=== PATIENT | female | born 1965 | race Caucasian/White ===

== ENCOUNTER 2024-08-20 10:40 | Emergency (ER) | payer OTHER, SELFPAY ==
[2024-08-20 10:53] VITALS: BP 142/90; PULSE 91; RESP 18; TEMP 36.7; O2SAT 100; BMI 20.6
--- NOTE | 2024-08-20 11:04 | XR_ITS ---
Examination: Foot, left, 3 views Technique: AP, oblique, lateral views foot, 3 views Date and time of exam: August 20, 2024, 1113 hrs. Indications: Patient fell this morning with injury to the foot, foot pain Findings: Significant osteopenia Possible tiny chip fracture 4 mm off the lateral anterior calcaneus on the AP view No dislocation Impression: Suspicious for tiny chip fracture off the anterior lateral calcaneus
--- NOTE | 2024-08-20 11:04 | XR_ITS ---
EXAMINATION: Ankle, left 3 views . Technique: Ankle AP, oblique, lateral 3 views Date and time of exam: August 20, 2024 1115 hrs. Indications: Patient fell this morning with injury to the ankle, ankle pain Findings: No acute ankle fracture No dislocation Impression: No acute ankle fracture
--- NOTE | 2024-08-20 11:05 | PD.EDANKLE ---
Lower Extremity Injury RME/HPI General Chief Complaint: Ankle/Foot Injury Stated Complaint: LEFT ANKLE INJURY FALLING DOWN STAIRS Time Seen by Provider: 08/20/24 10:49 Arrival date/time: 08/20/24 10:40 This is a 58-year-old female that comes in with complaints of left ankle injury after falling down the stairs. Patient states she landed on her left hip but not complaining of pain to her left hip or her left leg. Patient does have pain to her left ankle and left foot. Patient has some moderate swelling. Patient denies loss of consciousness patient has an injury to fifth digit. On the right hand but states it only mildly hurts. Patient does not want an x-ray. Patient denies past medical history of Related Data Previous Rx's ?Medication ?Instructions ?Recorded ibuprofen 800 mg tablet 800 mg PO Q6H PRN pain #14 tabs 08/20/24 Allergies Allergy/AdvReac Type Severity Reaction Status Date / Time No Known Allergies Allergy Unverified 10/25/18 16:25 Course Orders Category Date Time Status XR ankle comp LT min 3V Stat Exams 08/20/24 11:04 Completed XR foot comp LT min 3V Stat Exams 08/20/24 11:04 Completed Vital Signs Vital signs: Vital Signs Temperature 98.1 F 08/20/24 10:53 Pulse Rate 91 08/20/24 10:53 Respiratory Rate 18 08/20/24 10:53 Blood Pressure 142/90 H 08/20/24 10:53 Pulse Oximetry (%) 100 08/20/24 10:53 Oxygen Delivery Method Room Air 08/20/24 10:53 Extremity Injury, Lower MDM Narrative MDM Narrative:: ankle x ray: Findings: No acute ankle fracture No dislocation Impression: No acute ankle fracture foot x ray: Findings: Significant osteopenia Possible tiny chip fracture 4 mm off the lateral anterior calcaneus on the AP view No dislocation Impression: Suspicious for tiny chip fracture off the anterior lateral calcaneus Today patient had xrays. There was no acute fracture seen. On exam patient has mild swelling. I explained to patient at length that if there was continued pain to this area or worsened to come back to ED or see primary provider for more xrays or further testing such as CT scan or MRI. X rays are not perfect and sometimes serial films needed. Patient verbalized understanding. Patient states they will follow up with primary provider in 1-2 days or come back to ED if symptoms change or worsen. Discharge Plan Plan Patient Disposition: HOME (Self Care) Patient condition on transfer: Stable Prescriptions/Referrals Prescriptions/Med Rec: New ibuprofen 800 mg tablet 800 mg PO Q6H PRN (Reason: pain) Qty: 14 0RF Referrals: No Primary/Family,Physician [Primary Care Provider] - In 1 week Problem List Clinical Impression: Contusion of foot, Acute ankle pain Patient/Caregiver Discharge Instructions Discharge Activity: activity as tolerated Education Materials: Bone Contusion, ED RICE Additional Instructions: ankle x ray: Findings: No acute ankle fracture No dislocation Impression: No acute ankle fracture foot x ray: Findings: Significant osteopenia Possible tiny chip fracture 4 mm off the lateral anterior calcaneus on the AP view No dislocation Impression: Suspicious for tiny chip fracture off the anterior lateral calcaneus Please keep leg elevated ice at home. May take ibuprofen and Tylenol for pain. If continued's pain and swelling patient may need a repeat x-ray. Follow up with primary provider in 1-2 days. Come back to ED if symptoms change or worsen Print Language: Guatemalan Stand Alone Forms: Kandy Award Info., Work/School Release, Patient Portal Info Letter PA/MAURA Supervising Physician KATARZYNA/MAURA Supervising Physician: dot
== END 2024-08-20 14:09 | disposition home or self-care (01) ==
PROVIDERS: Emergency Provider Emergency Medicine
DX: S90.32XA Contusion of left foot, initial encounter (principal); W10.9XXA Fall (on) (from) unspecified stairs and steps, initial encounter; M25.572 Pain in left ankle and joints of left foot
CPT/HCPCS: 29515; 73610; 73630; 99283

== ENCOUNTER 2024-09-01 15:21 | Emergency (ER) | payer OTHER, SELFPAY ==
[2024-09-01 15:22] VITALS: BMI 21.3
[2024-09-01 15:48] VITALS: BP 158/92; PULSE 98; RESP 18; TEMP 37.1; O2SAT 96
--- NOTE | 2024-09-01 16:00 | EDNOTE_ITS ---
<Statement entered by Sanjuanita Giron MD - 09/02/24 06:23> As co-signing physician, I was present and available for consult prn. I concur with the plan and care as documented by the midlevel provider. Lower Extremity Injury RME/HPI General Chief Complaint: Ankle/Foot Injury Stated Complaint: LEFT ANKLE INJURY OM 08/20 AND NOW ANKLE RED Time Seen by Provider: 09/01/24 15:53 Source: patient Arrival date/time: 09/01/24 15:21 58-year-old female with no known medical history presents to the emergency room with a chief complaint of tenderness and pain to her left ankle. Patient states she was seen here on 08/20/2024. Mode of arrival: ambulatory Limitations: no limitations Related Data Previous Rx's ?Medication ?Instructions ?Recorded ibuprofen 800 mg tablet 800 mg PO Q6H PRN pain #14 t abs 08/20/24 cephalexin 500 mg capsule 500 mg PO BID 7 days #14 cap s 09/01/24 ibuprofen 800 mg tablet 800 mg PO Q8H #30 tabs 09/01 Allergies Allergy/AdvReac Type Severity Reaction Status Date / Time No Known Allergies Allergy Unverified 09/01/24 15:23 Review of Systems Review of Systems Systems Reviewed: All systems reviewed, normal except as documented Constitutional Constitutional: Reports system reviewed and no additional complaints, except as documented, Denies fatigue, Denies fever(s), Denies headache(s) and Denies weakness Eyes Eyes: Reports system reviewed and no additional complaints, except as documented, Denies blurry vision and Denies change in vision ENT Ears, Nose, Mouth, and Throat: Reports system reviewed and no additional complaints, except as documented, Denies otalgia, Denies headache(s), Denies nasal congestion, Denies throat swelling and Denies vertigo Cardiovascular Cardiovascular: Reports system reviewed and no additional complaints, except as documented, Denies chest pain, Denies dyspnea and Denies dyspnea on exertion Respiratory Respiratory: Reports system reviewed and no additional complaints, except as documented, Denies chest congestion, Denies cough, Denies dyspnea, Denies dyspnea on exertion and Denies wheezing Gastrointestinal Gastrointestinal: Reports system reviewed and no additional complaints, except as documented, Denies abdominal pain, Denies cramping, Denies nausea and Denies vomiting Genitourinary Genitourinary: Reports system reviewed and no additional complaints, except as documented Musculoskeletal Musculoskeletal: Reports system reviewed and no additional complaints, except as documented, Reports abnormal gait, Reports arthralgias, Denies back pain and Reports limited range of motion Integumentary/Breasts Skin/Breast: Reports system reviewed and no additional complaints, except as documented and Denies wounds Neurologic Neurologic: Reports system reviewed and no additional complaints, except as documented, Reports abnormal gait, Denies confusion, Denies headache(s), Denies lack of coordination, Denies vertigo and Denies weakness Psychiatric Psychiatric: Reports system reviewed and no additional complaints, except as documented, Denies anxiety, Denies confusion, Denies depression, Denies paranoia, Denies suicidal ideation and Denies tactile hallucinations Endocrine Endocrine: Reports system reviewed and no additional complaints, except as documented and Denies fatigue Hematologic/Lymphatic Hematologic/Lymphatic: Reports system reviewed and no additional complaints, except as documented and Denies lymphadenopathy Allergic/Immunologic Allergic/Immunologic: Reports system reviewed and no additional complaints, except as documented, Denies throat swelling, Denies urticaria and Denies wheezing Past Medical History Past Medical History CARDIAC: Negative Congestive Heart Failure RESPIRATORY: Positive Chronic Obstructive Pulmonary Disease (COPD) and Asthma GENITOURINARY: Negative Renal Disease ENDOCRINE: Negative Diabetes Mellitus Type 1 or Diabetes Mellitus Type 2 Social History SMOKING STATUS: Never smoker ED Exam General Limitations: Present no limitations General appearance: Present alert and in no apparent distress Head Head exam: Present atraumatic Eye Eye exam: Present normal appearance, PERRL and EOMI ENT ENT exam: Present normal exam, normal oropharynx and mucous membranes moist Neck Neck exam: Present normal inspection, full ROM and trachea midline Chest Chest inspection: Present normal inspection and symmetric chest wall rise Respiratory Respiratory exam: Present normal lung sounds bilaterally Cardiovascular Cardiovascular exam: Present regular rate, normal rhythm and normal heart sounds Abdominal Exam Abdominal exam: Present soft and normal bowel sounds Extremities Exam Extremities exam: Present normal inspection and full ROM Expanded Lower Extremity Exam Hip/Pelvis exam: Present normal inspection Upper leg exam: Present normal inspection Knee exam: Present normal inspection Lower leg exam: Present normal inspection Ankle exam: Present tenderness, swelling and tenderness over talofibular lig; Absent full ROM Foot/toe exam: Present normal inspection Neurovascular/Tendon exam: Present normal capillary refill Gait: observed and limited by pain Back Exam Back exam: Present normal inspection and full ROM Neurological Exam Neurological exam: Present alert, oriented X3 and CN II-XII intact Psychiatric Psychiatric exam: Present normal affect and normal mood Skin Skin exam: Present warm, dry, intact and normal color Course Quality Measures none Vital Signs Vital signs: Vital Signs Temperature 98.7 F 09/01/24 15:48 Pulse Rate 98 09/01/24 15:48 Respiratory Rate 18 09/01/24 15:48 Blood Pressure 158/92 H 09/01/24 15:48 Pulse Oximetry (%) 96 09/01/24 15:48 Oxygen Delivery Method Room Air 09/01/24 15:48 Extremity Injury, Lower MDM Narrative MDM Narrative:: 58-year-old female with no known medical history presents to the emergency room with a chief complaint of tenderness and pain to her left ankle. Patient states she was seen here on 08/20/2024. Patient is hemodynamically stable and in no apparent distress Patient was seen here on the and x-rays were completed one of the x-rays showed there could be a small chip fracture to the foot. Ankle was negative for acute fracture or dislocation I evaluated the patient's foot there is still swelling there is bruising and there is warmth. Patient has an appointment with it technical specialist coming up Patient was discharged and educated to follow-up with primary care provider in the next 24 to 48 hours and return to the emergency room for any evidence of worsening signs or symptoms Patient data External records reviewed:: [facility] previous records Clinical information provided by:: patient Social determinants that could affect healthcare access:: none Patient has the following chronic illnesses:: No chronic illness How is presenting disease/condition affected by chronic disease/condition?: no chronic disease Evaluation data The following diagnostics were reviewed and interpreted by me:: lab results and radiology exam(s) Lab and/or radiology exams considered but not ordered:: Labs and radiology exams considered in order Interpretation Summary: N/A Medications / Prescriptions Medications or Prescriptions considered but not ordered:: No medication given Medication administrations:: No medication given Consultations Consultation(s) initiated? (list below): No Diagnosis Extremity Injury, Lower Differential Diagnosis: ankle sprain and strain, ankle fracture and other (Foot fracture) Most likely diagnosis given after review of the tests above:: Foot fracture Admission Indicated Admission indicated?: not indicated Admission Request Was there a request for admission?: No Disposition Plan Disposition Plan: Discharge Discharge Attestation Discharge Attestation: The patient and all family members were given an opportunity to ask questions and understood the discharge instructions. Discharge instructions specifically effects, indications for sooner follow up or return to the emergency department, and the expected course of current diagnosis. Patient condition: Stable Discharge Plan Plan Patient Disposition: HOME (Self Care) Discharge Disposition comment: Stable Prescriptions/Referrals Prescriptions/Med Rec: New cephalexin 500 mg capsule 500 mg PO BID 7 Days Qty: 14 0RF ibuprofen 800 mg tablet 800 mg PO Q8H Qty: 30 0RF No Action ibuprofen 800 mg tablet 800 mg PO Q6H PRN (Reason: pain) Qty: 14 0RF Problem List Clinical Impression: Foot fracture Patient/Caregiver Discharge Instructions Education Materials: ED Fracture, Foot, ED Fracture, Lower Extremity Additional Instructions: Please follow-up with your primary care provider in the next 24 to 48 hours Follow-up with your it technical specialist for further management of this chip fracture Antibiotics are sent to your pharmacy to prevent any infection to the area. For any evidence of worsening signs or symptoms return to the emergency room immediately Print Language: Luxembourger Stand Alone Forms: Kandy Award Info., Patient Portal Info Letter KATARZYNA/MAURA Supervising Physician KATARZYNA/MAURA Supervising Physician: Dr. GIRON
== END 2024-09-01 16:59 | disposition home or self-care (01) ==
LOC: SERX 16:08
PROVIDERS: Emergency Provider Emergency Medicine
DX: M25.572 Pain in left ankle and joints of left foot (principal); S92.902A Unspecified fracture of left foot, initial encounter for closed fracture; X58.XXXA Exposure to other specified factors, initial encounter
CPT/HCPCS: 99281

== ENCOUNTER → 2024-09-12 | Outpatient (CLI) | payer OTHER, SELFPAY ==
--- NOTE | 2024-09-12 10:54 | XR_ITS ---
EXAMINATION: Ankle, left . Technique: Ankle AP, oblique, lateral 3 views Date and time of exam: September 12, 2024 1128 hours INDICATIONS: Patient fell one month ago with injury to the ankle, ankle pain. FINDINGS: Severe osteopenia. Tiny chip fractures off the anterior lateral calcaneus IMPRESSION: Tiny chip fractures off the anterior lateral calcaneus
--- NOTE | 2024-09-12 10:54 | XR_ITS ---
Examination: Foot, left, 3 views Technique: AP, oblique, lateral views foot, 3 views Date and time of exam: September 12, 2024 1128 hours INDICATIONS: Patient fell one month ago with injury to foot, foot pain. FINDINGS: Tiny chip fractures off the anterior lateral margin of the calcaneus Digits metatarsals intact IMPRESSION: Tiny chip fractures off the lateral anterior margin of the calcaneus
== END | disposition home or self-care (01) ==
LOC: CDIM 10:49
PROVIDERS: PCP Nurse Practitioner; Referring Provider Podiatrist; Visit Provider Podiatrist
DX: S92.022A Displaced fracture of anterior process of left calcaneus, initial encounter for closed fracture (principal); W19.XXXA Unspecified fall, initial encounter
CPT/HCPCS: 73610; 73630

== ENCOUNTER → 2024-12-16 | Outpatient (CLI) | payer OTHER, SELFPAY ==
--- NOTE | 2024-12-16 12:30 | XR_ITS ---
Examination: MRI left foot, without contrast Date and time of exam: December 16, 2024, 1249 hours INDICATIONS: Foot injury 4 months ago, unable to bear weight on the foot Technique: Multiple axial sagittal and coronal images of the left foot have been obtained with the Siemens high-resolution 1.5 [place] MRI scanner. Images obtained include T2-weighted fat-suppressed sagittal sections, TR 3500, TE 46, T2 weighted coronal fat suppressed images, TR 3050, TE 84, T2-weighted transverse fat suppressed images, TR 3260, TE 63, proton density transverse images, TR 4720 TE 46, and T1 weighted coronal images, TR 560, TE 13. Findings: Marrow edema in the medial navicular Marrow edema in the distal phalanx first digit Mild thickening of the Achilles tendon Plantar fascia intact Negative for sinus Tarsi syndrome Partial tear, axial image 1, anterior talar fibular ligament Flexor tendons intact Mild tendinitis peroneus longus and brevis Extensor tendons intact Mild narrowing first metatarsophalangeal joint Mild narrowing tibiotalar joint IMPRESSION: Marrow edema involving the medial navicular and distal phalanx first digit consistent with bone contusion Suspicious for partial tear anterior talofibular ligament, recommend MRI ankle follow-up
== END | disposition home or self-care (01) ==
LOC: SMRI 12:13
PROVIDERS: PCP Family Medicine; Referring Provider Podiatrist; Visit Provider Podiatrist
DX: M25.475 Effusion, left foot (principal); S99.922S Unspecified injury of left foot, sequela; X58.XXXS Exposure to other specified factors, sequela
CPT/HCPCS: 73718

== ENCOUNTER → 2024-12-17 | Outpatient (CLI) | payer OTHER, SELFPAY ==
--- NOTE | 2024-12-17 14:15 | XR_ITS ---
Examination: MRI left ankle, without contrast Date and time of exam: December 17 32,025, 1531 hrs. Indications: Patient fell downstairs 4 months ago with injury to the ankle, ankle pain swelling instability 2 very weighted on the ankle Technique: Multiple axial sagittal and coronal images of the left ankle have been obtained with the Siemens high-resolution 1.5 [place] MRI scanner. Images obtained include T2-weighted fat-suppressed sagittal sections, TR 3500, TE 46, T2 weighted coronal fat suppressed images, TR 3050, TE 84, T2-weighted transverse fat suppressed images, TR 3260, TE 63, proton density transverse images, TR 4720 TE 46, and T1 weighted coronal images, TR 560, TE 13. Findings: Biconvex thickening of the Achilles tendon Mild plantar fasciitis Small ankle effusion Dome of the talus intact Focal marrow edema medial navicular axial image 20 with microtrabecular fracture lines Anterior posterior inferior tibiofibular ligaments intact Moderate strain anterior talofibular ligament Diffuse flexor tendinitis, most prominent involving the flexure digitorum and peroneus longus and brevis 6 Extensor tendons intact Impression: Bone contusion with microtrabecular fracture lines medial navicular with no displacement Achilles tendinosis Moderate strain anterior talofibular ligament Mild diffuse flexor tendinitis
== END | disposition home or self-care (01) ==
LOC: SMRI 14:22
PROVIDERS: Referring Provider Podiatrist; Visit Provider Podiatrist
DX: M67.874 Other specified disorders of tendon, left ankle and foot (principal); S99.912A Unspecified injury of left ankle, initial encounter; W19.XXXA Unspecified fall, initial encounter
CPT/HCPCS: 73721